=== PATIENT | male | born 1975 | race Caucasian/White ===

== ENCOUNTER 2017-02-26 22:55 | Inpatient (IN) | payer MEDICAID ==
[~2017-02-26] VITALS: Ht 185.4 cm; Wt 94.3 kg
--- NOTE | 2017-02-26 23:02 | NUR ---
SENT TO LOBBY TO WAIT FOR AVAILABLE BED. 0 S/S DISTRESS NOTED
--- NOTE | 2017-02-27 00:20 | NUR ---
PT HERE FOR C/O PAIN TO THROAT WITH BURNING SENSATION RADIATING DOWNWARD TO CHEST AREA. PT STS PAIN PRESENT FOR 5 DAYS WITH COUGH. NO SIGNS OF DISTRESS NOTED
[2017-02-27 00:43] LABS: BASOPHIL % 1.9 % (0-2); PLATELET COUNT 189 x10^3mcL (130-400); RED CELL DISTRIBUTION WIDTH 13.2 % (11.5-14.5)
[2017-02-27 00:51] LABS: CALCIUM 8.9 mg/dL (8.5-10.1); CHLORIDE SERUM 104 mmol/L (98-107); CREATININE SERUM 1.2 mg/dL (0.7-1.3); GFR1 > 60 mL/min; GLUCOSE SERUM 224 mg/dL (74-106); POTASSIUM SERUM 4.2 mmol/L (3.5-5.1); SODIUM SERUM 143 mmol/L (136-145)
[2017-02-27 00:57] LABS: ALBUMIN 3.5 g/dL (3.4-5.0); ALKALINE PHOSPHATASE 68 U/L (46-116); ALT/SGPT 43 U/L (16-63); AST/SGOT 19 U/L (15-37); BILIRUBIN TOTAL 0.3 mg/dL (0.20-1.00); TOTAL PROTEIN, SERUM 6.7 g/dL (6.4-8.2)
--- NOTE | 2017-02-27 01:23 | NUR ---
PT DENIES CP. OK TO HOLD ON NITRO SL TAB PER DR RUIZ.
--- NOTE | 2017-02-27 01:23 | NUR ---
DR RUIZ SPOKE WITH PT REGARDING TEST RESULTS
--- NOTE | 2017-02-27 01:47 | NUR ---
PT MEDICATED WITH MORPHINE AND ZOFRAN SLOW IV PUSH PER MD ORDERS. PT AWAKE AND ALERT, CALL FLORIAN WIHTIN REACH, NO ACUTE DISTRESS NOTED
--- NOTE | 2017-02-27 01:47 | NUR ---
DR RUIZ AT BEDSIDE DISCUSSING PLAN OF CARE WITH PT
--- NOTE | 2017-02-27 02:55 | NUR ---
REPORT CALLED TO [facility] TO ASSUME CARE OF PT
[2017-02-27] MEDS ORDERED: PLA75 PO (03:03)
[2017-02-27] MEDS ORDERED: METFORMIN HCL500 MG PO (03:03)
[2017-02-27] MEDS ORDERED: LISINOPRIL40 MG PO (03:04)
[2017-02-27] MEDS ORDERED: NOR5 PO (03:04)
[2017-02-27] MEDS ORDERED: LIPITOR80 MG PO (03:04)
[2017-02-27] MEDS ORDERED: ASPIR 8181 MG PO (03:04)
[2017-02-27] MEDS ORDERED: CARVEDILOL25 M1 PO (03:04)
[2017-02-27 03:21] VITALS: BP 140/92
--- NOTE | 2017-02-27 03:32 | NUR ---
RECEIVED PATIENT FROM ED VIA GUERNEY, IN NO ACUTE DISTRESS, C/O PAIN TO THROAT WILL MEDICATE ORDERED, ORIENTED PATIENT TO ROOM AND SURROUNDINGS, BED IN LOW POSITION, BED RAILS UP X 2, CALL LIGHT WITHIN REACH, WILL CONTINUE TO MONITOR
--- NOTE | 2017-02-27 03:36 | NUR ---
RECEIVED PATIENT INFUSING HEPARIN AT 1140 UNITS/HR, ED STATES PATIENT BOLUSED WITH 6000 UNITS, HEPARIN STARTED AT 0220, PTT ORDERED AT 0820, WILL CONTINUE TO MONITOR
[2017-02-27 04:32] LABS: CHOLESTEROL/HDL RATIO 4.2
[2017-02-27 05:31] VITALS: BP 129/90
[2017-02-27 08:35] VITALS: BP 121/81
--- NOTE | 2017-02-27 09:00 | NUR ---
PT ON BED, AWAKE, ALERT, AND ORIENTED. HAS NO COMPLAINT OF PAIN, SOB, OR DIZZINESS. RESPONDS WELL TO QUESTION AND ANSWER. CLEAR TAMMY LUNG FIELD, SYMMETRICAL CHEST EXPANSION AND UNLABORED. ACTIVE BOWEL SOUNDS NOTED, NON DISTENDED ABDOMEN. SKIN INTACT. SIDE RAILS UP, CALL LIGHT WITHIN REACH, WILL CONTINUE TO MONITOR
--- NOTE | 2017-02-27 09:00 | NUR ---
PT'S HEP DRIP AT 1100 U/HR
--- NOTE | 2017-02-27 09:51 | NUR ---
PT'S PTT SHOWED 49.0. WITHIN THERAPEUTIC RANGE. RECHECK PTT IN 4 HOURS
[2017-02-27 10:30] LABS: T3 TOTAL 0.91 ng/mL
--- NOTE | 2017-02-27 12:00 | NUR ---
PT'S ACCUCHECK SHOWED 332. 12 UNITS OF REGULAR INSULIN GIVEN COVERAGE
[2017-02-27 12:31] LABS: FREE T4 1.01 ng/dL (0.76-1.46); FREE THYROXINE INDEX 2.5 ug/dL (1.4-4.5)
--- NOTE | 2017-02-27 12:38 | NUR ---
PT'S HEPARIN DRIP HAS BEEN D/C PER DR'S ORDER
[2017-02-27 14:00] VITALS: BP 127/80
--- NOTE | 2017-02-27 15:23 | NUR ---
PT ON BED, AWAKE, ALERT, AND ORIENTED. HAS NO COMPLAINT OF PAIN, SOB, OR DIZZINESS. PT WANTS TO GO AMA. DR. ZARATE. IV AND TELE HAS BEEN D/C
== END 2017-02-27 15:29 | disposition left against medical advice (07) | DRG 198 ==
LOC: ED 22:55 → DU 02-27 02:42
PROVIDERS: Emergency Medicine; ADMIT Family Medicine
DX: R07.9 Chest pain, unspecified (principal); I24.9 Acute ischemic heart disease, unspecified; E11.65 Type 2 diabetes mellitus with hyperglycemia; M94.0 Chondrocostal junction syndrome [Tietze]; I25.10 Atherosclerotic heart disease of native coronary artery without angina pectoris; J02.9 Acute pharyngitis, unspecified; I25.2 Old myocardial infarction; Z68.27 Body mass index [BMI] 27.0-27.9, adult; Z79.82 Long term (current) use of aspirin; Z79.84 Long term (current) use of oral hypoglycemic drugs; Z95.5 Presence of coronary angioplasty implant and graft; Z53.20 Procedure and treatment not carried out because of patient's decision for unspecified reasons
CPT/HCPCS: 80307; 82962; 83880; 84439; J1100; J1644; J1885; J2060; J2270; J2405; J7030; Q0092